=== PATIENT | male | born 2000 | race Caucasian/White ===

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

== ENCOUNTER 2020-04-24 19:06 | Emergency (ER) | payer OTHER ==
[~2020-04-24] VITALS: Ht 182.9 cm; Wt 79.5 kg
[2020-04-24 19:06] VITALS: BP 133/82
[2020-04-24] MEDS ORDERED: ACETAMINOPHEN 500 MG TAB PO ONE (19:45)
--- NOTE | 2020-04-24 19:52 | REP ---
INDICATION: pain after reaching up COMPARISON: None. TECHNIQUE: Three views right shoulder. FINDINGS: There is no evidence of acute fracture.The distal end of the clavicle appears mildly elevated with respect to the acromion. There may be mild AC joint separation/injury. IMPRESSION: The distal end of the clavicle appears mildly elevated with respect to the acromion. There may be mild AC joint separation/injury. <Electronically signed by Ruben Chester > 04/24/20 804
== END 2020-04-24 20:37 | disposition home or self-care (01) ==
LOC: M ED 19:06
DX: S43.51XA Sprain of right acromioclavicular joint, initial encounter (principal); W22.8XXA Striking against or struck by other objects, initial encounter; Y92.099 Unspecified place in other non-institutional residence as the place of occurrence of the external cause; Y93.89 Activity, other specified; Y99.9 Unspecified external cause status